=== PATIENT | female | born 1980 | race Caucasian/White ===

== ENCOUNTER 2016-07-13 | Emergency (ER) | payer MEDICAID | END 2016-07-13 14:52 | disposition left against medical advice (07) | DX: Z53.21 Procedure and treatment not carried out due to patient leaving prior to being seen by health care provider (principal) ==

== ENCOUNTER 2016-07-14 07:41 | Emergency (ER) | payer MEDICAID ==
[2016-07-14] MEDS ORDERED: SODIUM CHLORIDE 0.9% 1,000 ML IV ONE ×2 (08:06→09:36)
[2016-07-14] MEDS ORDERED: ONDANSETRON 4 MG/2 ML VIAL IVP STA ×2 (08:06→09:50)
--- NOTE | 2016-07-14 08:11 | ED Physician Documentation ---
PD HPI ABD PAIN - Stated complaint Stated Complaint: STOMACH PAIN - Chief complaint Chief Complaint: Abd Pain - History obtained from History obtained from: Patient - History of Present Illness Timing - onset: How many weeks ago (3) Timing - duration: Weeks (3) Timing - details: Waxing and waning Quality: Pain Location: Periumbilical Improved by: Eating Associated symptoms: Nausea, Vomiting, Diarrhea. No: Fever Similar symptoms before: Diagnosis (History of similar symptoms with PUD.) - Additional information Additional information: The patient is a 36-year-old female who presents with abdominal pain that has been waxing and waning for the past 3 weeks. She has been vomiting almost every morning. She also reports having watery diarrhea daily for the past 10 days. She has tried taking antacid, without relief. Eating temporarily helps with the pain. She has a history of similar symptoms in the past with "ulcers." She is not currently on any medication for ulcers. She denies drinking alcohol, and does not take other drugs. She does drink coffee, and smokes cigarettes. On further review of systems she denies fever, cough, or dysuria. This morning when vomiting she developed pain in her neck. She is status post hysterectomy. She denies any recent travel. No other family members are ill. Review of Systems Constitutional: denies: Fever Nose: denies: Congestion Throat: denies: Sore throat Cardiac: denies: Chest pain / pressure Respiratory: denies: Dyspnea, Cough GI: reports: Abdominal Pain, Nausea, Vomiting, Diarrhea : reports: Hysterectomy. denies: Dysuria Skin: denies: Rash Musculoskeletal: reports: Neck pain. 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 - Present Medications Home Medications: Ambulatory Orders Medication Instructions Recorded Confirmed Dextroamphetamine/Amphetamine 30 mg PO DAILY 12/14/15 07/14/16 [Adderall 30 mg Tablet] Lamotrigine [Lamictal] 200 mg PO DAILY #30 tablet 12/14/15 07/14/16 Ondansetron Odt [Zofran] 4 mg TL Q6H PRN #10 tablet 07/14/16 raNITIdine [Zantac] 150 mg PO BID #30 tablet 07/14/16 - Allergies Allergies/Adverse Reactions: Allergies Allergy/AdvReac Type Severity Reaction Status Date / Time No Known Drug Allergies Allergy Verified 07/14/16 07:46 - Living Situation Living Situation: reports: With family - Social History Does the pt smoke?: Yes Smoking Status: Current every day smoker Does the pt drink ETOH?: Yes Does the pt have substance abuse?: No - Immunizations Immunizations are current?: Yes PD ED PE NORMAL - Vitals Vital signs reviewed: Yes (Initially hypertensive and tachycardic.) - General General: Alert and oriented X 3, Well developed/nourished - HEENT HEENT: Atraumatic, EOMI, Pharynx benign - Neck Neck: Supple, no meningeal sign, No adenopathy - Cardiac Cardiac: RRR, No murmur - Respiratory Respiratory: No respiratory distress, Clear bilaterally - Abdomen Abdomen: Normal bowel sounds, Soft, Non tender, Non distended, No organomegaly, Other (There is no specific tenderness to palpation of the abdomen.) - Back Back: No CVA TTP - Derm Derm: No rash - Extremities Extremities: No edema, No calf tenderness / cord - Neuro Neuro: Alert and oriented X 3, No motor deficit, Normal speech Results - Vitals Vitals: Vital Signs - 24 hr 07/14/16 11:35 Temperature 36.8 C Heart Rate 88 Respiratory 17 Rate Blood Pressure 162/96 H O2 Saturation 100 Oxygen O2 Source Room air - Labs Labs: Laboratory Tests 07/14/16 07/14/16 07/14/16 08:13 08:13 09:36 WBC 5.6 RBC 4.16 L Hgb 14.2 Hct 40.2 MCV 96.8 MCH 34.2 H MCHC 35.4 RDW 12.1 Plt Count 214 MPV 8.5 Neut # 2.5 Lymph # 2.4 [place] # 0.4 Eos # 0.2 Baso # 0.1 Absolute Nucleated RBC 0.00 Nucleated RBCs 0.0 Sodium 138 Potassium 4.2 Chloride 102 Carbon Dioxide 27 Anion Gap 9.0 BUN 17 Creatinine 0.8 Estimated GFR (MDRD) 82 L Glucose 97 Calcium 9.4 Total Bilirubin 0.8 AST 103 H ALT 132 H Alkaline Phosphatase 85 Total Protein 7.3 Albumin 4.5 Globulin 2.8 Albumin/Globulin Ratio 1.6 Lipase 30 Urine Color YELLOW Urine Clarity CLEAR Urine pH 6.0 Ur Specific [place] 1.010 Urine Protein NEGATIVE Urine Glucose (UA) NEGATIVE Urine Ketones NEGATIVE Urine Occult Blood NEGATIVE Urine Nitrite NEGATIVE Urine Bilirubin NEGATIVE Urine Urobilinogen 0.2 (NORMAL) Ur Leukocyte Esterase NEGATIVE Ur Microscopic Review NOT INDICATED Urine Culture Comments NOT INDICATED PD MEDICAL DECISION MAKING - ED course Complexity details: reviewed results, re-evaluated patient, considered differential, d/w patient, d/w family ED course: The patient's presentation is most consistent with peptic ulcer disease versus gastritis. Her presentation does not suggest cardiac etiology of her abdominal pain and vomiting. Her symptoms do not suggest biliary colic, although ALT and AST are slightly elevated. I doubt pancreatitis, with a normal lipase. She is status post hysterectomy, so is not a concern. Treatment in the emergency department included administration of normal saline 1 L IV, Zofran 4 mg IV 2, acetaminophen 1 g orally, and famotidine 20 mg IV. By the time of discharge the patient's symptoms had resolved, and reexamination reveals a benign abdomen. She is being discharged with prescriptions for ranitidine and Zofran. I discussed with her and her mother the likely diagnosis , dietary factors and symptomatic treatment, the importance of outpatient follow -up, as well as potentially worrisome signs or symptoms that should prompt reevaluation in the emergency department. Departure - Departure Disposition: 01 Home, Self Care Clinical Impression: PUD (peptic ulcer disease), Dehydration Vomiting Qualifiers: Vomiting type: unspecified Vomiting Intractability: non-intractable Nausea presence: with nausea Qualified Code(s): R11.2 - Nausea with vomiting, unspecified Diarrhea Qualifiers: Diarrhea type: unspecified type Qualified Code(s): R19.7 - Diarrhea, unspecified Hypertension Qualifiers: Hypertension type: unspecified secondary hypertension Qualified Code(s): I15.9 - Secondary hypertension, unspecified; I15 - Secondary hypertension Condition: Stable Instructions: ED PUD Vs Gastritis Follow-Up: [facility] [Provider Group] Prescriptions: raNITIdine [Zantac] 150 mg PO BID #30 tablet Ondansetron Odt [Zofran] 4 mg TL Q6H PRN #10 tablet PRN Reason: Nausea / Vomiting Comments: Drink plenty of fluids. Take ranitidine twice daily as prescribed. Use Zofran as prescribed if needed for nausea. Followup with primary physician within 2 weeks. Call to schedule an appointment. Return to the emergency department if you develop increasing abdominal pain, persistent vomiting, recurrent dehydration, or otherwise worsening symptoms. Your blood pressure in the emergency department today was high, and that should be rechecked when seen by a primary physician. Discharge Date/Time: 07/14/16 12:08
[2016-07-14] MEDS ORDERED: ONDANSETRON 4 MG/2 ML VIAL ONE ×2 (08:12→09:42)
[2016-07-14 08:23] LABS: BASOPHILS # (AUTO) 0.1 10^3/uL (0.0-0.1); BASOPHILS % (AUTO) 1.3 %; EOSINOPHILS # (AUTO) 0.2 10^3/uL (0.0-0.7); EOSINOPHILS % (AUTO) 4.3 %; HCT - HEMATOCRIT 40.2 % (37.0-47.0); HGB - HEMOGLOBIN 14.2 g/dL (12.0-16.0); LYMPHOCYTES # (AUTO) 2.4 10^3/uL (1.5-3.5); LYMPHOCYTES % (AUTO) 42.1 %; MEAN CORPUSCULAR HEMOGLOBIN 34.2 pg (27.0-31.0); MEAN CORPUSCULAR HGB CONC 35.4 g/dL (32.0-36.0); MEAN CORPUSCULAR VOLUME 96.8 fL (81.0-99.0); MEAN PLATELET VOLUME 8.5 fL (7.9-10.8); MONOCYTES # (AUTO) 0.4 10^3/uL (0.0-1.0); MONOCYTES % (AUTO) 7.6 %; NEUTROPHILS # (AUTO) 2.5 10^3/uL (1.5-6.6); NEUTROPHILS % (AUTO) 44.7 %; RED BLOOD COUNT 4.16 10^6/uL (4.20-5.40); RED CELL DISTRIBUTION WIDTH 12.1 % (12.0-15.0); UNCORRECTED WHITE BLOOD COUNT 5.6 x10^3/uL; WHITE BLOOD COUNT 5.6 x10^3/uL (4.8-10.8)
[2016-07-14 08:35] LABS: ALBUMIN/GLOBULIN RATIO 1.6 (1.0-2.2); BILIRUBIN,TOTAL 0.8 mg/dL (0.2-1.0); CALCIUM 9.4 mg/dL (8.5-10.3); CREATININE 0.8 mg/dL (0.4-1.0); POTASSIUM 4.2 mmol/L (3.5-5.0); TOTAL PROTEIN 7.3 g/dL (6.7-8.2)
[2016-07-14] MEDS ORDERED: FAMOTIDINE 20 MG/50 ML 50 ML IV ONE ×2 (09:34→09:36)
[2016-07-14] MEDS ORDERED: ACETAMINOPHEN 325 MG TABLET PO STA (09:36)
[2016-07-14] MEDS ORDERED: ACETAMINOPHEN 500 MG TABLET PO ONE (09:37)
[2016-07-14 09:54] LABS: BILIRUBIN,URINE NEGATIVE (NEGATIVE)
[2016-07-14 09:55] LABS: UA CHARGE (STRIP ONLY) YES; UR CULTURE IF IND NOT INDICATED
[2016-07-14 11:36] VITALS: BP 162/96
== END 2016-07-14 12:08 | disposition home or self-care (01) ==
LOC: ED 07:41
DX: K27.9 Peptic ulcer, site unspecified, unspecified as acute or chronic, without hemorrhage or perforation (principal); E86.0 Dehydration; R11.2 Nausea with vomiting, unspecified; R19.7 Diarrhea, unspecified; I15.9 Secondary hypertension, unspecified; F17.200 Nicotine dependence, unspecified, uncomplicated
CPT/HCPCS: 36415; 80053; 81003; 83690; 85025; 96361; 96374; 96375; 99284; A9270; 81001; 87086

== ENCOUNTER 2017-01-12 11:48 | Outpatient (CLI) | payer MEDICAID ==
[2017-01-12 19:04] LABS: BASOPHILS % (AUTO) 0.4 %; EOSINOPHILS # (AUTO) 0.1 10^3/uL (0.0-0.7); EOSINOPHILS % (AUTO) 1.3 %; HGB - HEMOGLOBIN 13.6 g/dL (12.0-16.0); LYMPHOCYTES # (AUTO) 1.6 10^3/uL (1.5-3.5); LYMPHOCYTES % (AUTO) 29.4 %; MEAN CORPUSCULAR HEMOGLOBIN 33.8 pg (27.0-31.0); MEAN CORPUSCULAR HGB CONC 33.1 g/dL (32.0-36.0); MEAN CORPUSCULAR VOLUME 102.1 fL (81.0-99.0); MONOCYTES # (AUTO) 0.3 10^3/uL (0.0-1.0); MONOCYTES % (AUTO) 5.2 %; NEUTROPHILS # (AUTO) 3.6 10^3/uL (1.5-6.6); NEUTROPHILS % (AUTO) 63.7 %; RED BLOOD COUNT 4.01 10^6/uL (4.20-5.40); RED CELL DISTRIBUTION WIDTH 12.7 % (12.0-15.0); UNCORRECTED WHITE BLOOD COUNT 5.6 x10^3/uL; WHITE BLOOD COUNT 5.6 x10^3/uL (4.8-10.8)
[2017-01-12 19:19] LABS: PT - PROTHROMBIN TIME 11.2 secs (9.9-12.6)
[2017-01-12 19:29] LABS: PARTIAL THROMBOPLASTIN TIME 25.5 secs (24.9-33.3)
== END 2017-01-12 11:49 | disposition home or self-care (01) ==
LOC: LAB.N 11:48
PROVIDERS: ATTEND Nurse Practitioner Gerontology
DX: D68.9 Coagulation defect, unspecified (principal)
CPT/HCPCS: 36415; 85025; 85610; 85730

== ENCOUNTER 2017-01-23 08:00 | Emergency (ER) | payer MEDICAID ==
[2017-01-23] MEDS ORDERED: ACETAMINOPHEN 325 MG TABLET PO STA (08:30)
--- NOTE | 2017-01-23 08:32 | ED Physician Documentation ---
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 - Present Medications Home Medications: Ambulatory Orders Medication Instructions Recorded Confirmed Dextroamphetamine/Amphetamine 30 mg PO DAILY 12/14/15 01/23/17 [Adderall 30 mg Tablet] Lamotrigine [Lamictal] 200 mg PO DAILY #30 tablet 12/14/15 01/23/17 Ondansetron Odt [Zofran] 4 mg TL Q6H PRN #10 tablet 07/14/16 raNITIdine [Zantac] 150 mg PO BID #30 tablet 07/14/16 01/23/17 - Allergies Allergies/Adverse Reactions: Allergies Allergy/AdvReac Type Severity Reaction Status Date / Time No Known Drug Allergies Allergy Verified 07/14/16 07:46 - Social History Does the pt smoke?: Yes Smoking Status: Current every day smoker Does the pt drink ETOH?: Yes Does the pt have substance abuse?: No - Immunizations Immunizations are current?: Yes PD ED PE NORMAL - Vitals Vital signs reviewed: Yes - Extremities Extremities: Other (L knee, small effusion, no lateral TTP, no patellar TTP, + medial jt line TTP, slight medial laxity but similar to R knee, no ACL LCL laxity, MSV intact ) Results - Vitals Vitals: Vital Signs - 24 hr 01/23/17 01/23/17 08:08 10:07 Temperature 36.5 C 36.7 C Heart Rate 100 79 Respiratory 14 19 Rate Blood Pressure 141/118 H 131/85 H O2 Saturation 100 100 Oxygen O2 Source Room air - Rads (name of study) knee Radiology: See rad report (neg) PD MEDICAL DECISION MAKING - ED course ED course: pt stated knee immobilizer made pain worse so changed to IOANA + crutches Departure - Departure Disposition: 01 Home, Self Care Clinical Impression: Knee MCL sprain Qualifiers: Encounter type: initial encounter Laterality: left Qualified Code(s): S83.412A - Sprain of medial collateral ligament of left knee, initial encounter Condition: Good Instructions: ED Sprain Knee Collateral Ligaments Follow-Up: [facility] [Provider Group] (if not better after two weeks of wearing the brace) Keely Gutierrez ARNP [Primary Care Provider] - (for a recheck - and to follow up about your high blood pressure ) Comments: The xray did not show any fractures. It is possible for a hairline fracture to not be visible on initial xray so if the pain persists more than a few weeks, please see your PMD for a recheck and consideration of further imaging Based on your exam it seems you have sprained the medical collateral ligament Recommend you either wear a knee immobilizer or else an IOANA wrap and use crutches to reduce the stress on the injured ligament Motrin and tylenol as needed for the pain Ice and elevation as needed for the swelling Follow up with your PMD to get your blood pressure rechecked And follow up with either your PMD or orthopedics if not improving in two weeks Forms: Activity restrictions Discharge Date/Time: 01/23/17 10:13
[2017-01-23] MEDS ORDERED: ACETAMINOPHEN 325 MG TABLET PO ONE (08:51)
--- NOTE | 2017-01-23 09:20 | XRAY Preliminary Report ---
Exam: XR Knee 3 View LT IMPRESSION: Negative three-view left knee radiography. [facility] SITE ID: [id number]
--- NOTE | 2017-01-23 09:22 | XRAY Report ---
EXAM: LEFT KNEE RADIOGRAPHY EXAM DATE: 01/23/2017 08:53 AM. CLINICAL HISTORY: Fell on L knee, medial pain. COMPARISON: None. TECHNIQUE: 3 views. FINDINGS: Bones: No fractures or bone lesions. Joints: No effusion. No subluxations. Soft Tissues: No soft tissue swelling. IMPRESSION: Negative three-view left knee radiography. [facility] Referring Provider Line: [phone] SITE ID: [id number]
[2017-01-23 10:08] VITALS: BP 131/85
== END 2017-01-23 10:13 | disposition home or self-care (01) ==
LOC: ED 08:00
DX: S83.412A Sprain of medial collateral ligament of left knee, initial encounter (principal); W19.XXXA Unspecified fall, initial encounter; R03.0 Elevated blood-pressure reading, without diagnosis of hypertension; F17.200 Nicotine dependence, unspecified, uncomplicated
CPT/HCPCS: 73562; 99283; A9270

== ENCOUNTER 2017-02-27 09:19 | Emergency (ER) | payer OTHER, MEDICAID ==
[2017-02-27] MEDS ORDERED: HYDROcod/ACETAM 5/325 MG TABLET PO STA (10:20)
--- NOTE | 2017-02-27 10:22 | ED Physician Documentation ---
PD HPI UPPER EXT INJURY - Stated complaint Stated Complaint: R HAND INJ - Chief complaint Chief Complaint: Ext Problem - History obtained from History obtained from: Patient, Friend - History of Present Illness Location: Right, Hand Type of injury: Blunt / blow Where injury occurred: Work Timing - onset: Today Timing - duration: Minutes Timing - details: Abrupt onset, Still present Improved by: Rest, Immobilization Worsened by: Moving, Palpating Associated symptoms: Swelling Contributing factors: No: Anticoagulated Similar symptoms before: Has not had sx before Recently seen: Not recently seen - Additonal information Additional information: 36-year-old female was at work today when she dropped a 300 pound great on her right hand. She has pain across the thenar eminence and the pain shoots up into her forearm when she flexes or extends the thumb or moves to the wrist. She does not have pain in the wrist she does not have pain in the fingers. Review of Systems Constitutional: denies: Fever Throat: denies: Sore throat Respiratory: denies: Cough GI: denies: Vomiting Skin: denies: Rash Musculoskeletal: reports: Extremity pain, Extremity swelling. 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 - Present Medications Home Medications: Ambulatory Orders Medication Instructions Recorded Confirmed Dextroamphetamine/Amphetamine 30 mg PO DAILY 12/14/15 01/23/17 [Adderall 30 mg Tablet] Lamotrigine [Lamictal] 200 mg PO DAILY #30 tablet 12/14/15 02/27/17 HYDROcod/ACETAM 5/325 [[place] 5/325] 1 - 2 ea PO Q6H PRN #15 tablet 02/27/17 - Allergies Allergies/Adverse Reactions: Allergies Allergy/AdvReac Type Severity Reaction Status Date / Time No Known Drug Allergies Allergy Verified 02/27/17 09:34 - Social History Does the pt smoke?: Yes Smoking Status: Current every day smoker Does the pt drink ETOH?: Yes Does the pt have substance abuse?: No - Immunizations Immunizations are current?: Yes PD ED PE NORMAL - Vitals Vital signs reviewed: Yes (hypertensive ) - General General: Alert and oriented X 3, No acute distress, Well developed/nourished - HEENT HEENT: Atraumatic - Respiratory Respiratory: No respiratory distress - Derm Derm: Normal color, Warm and dry, No rash - Extremities Extremities: No deformity, Other (There is tenderness over the right thenar eminence and no obvious deformity. There is no tenderness over the distal radius and ulna flexion extension of the wrist does cause pain into the hand and into the forearm. She is able flex all the fingers she is not able to flex the thumb without significant pain.) - Neuro Neuro: No motor deficit, No sensory deficit - Psych Psych: Normal mood, Normal affect Results - Vitals Vitals: Vital Signs - 24 hr 02/27/17 02/27/17 09:26 11:15 Temperature 37 C 37.0 C Heart Rate 100 79 Respiratory 20 18 Rate Blood Pressure 162/90 H 155/89 H O2 Saturation 100 100 Oxygen O2 Source Room air - Rads (name of study) Right hand Radiology: Prelim report reviewed (Impression: No acute fracture or dislocation identified.), EMP read indepedently, See rad report PD MEDICAL DECISION MAKING - ED course Complexity details: reviewed results, re-evaluated patient, considered differential, d/w patient ED course: 36-year-old female with a crush injury to the right hand does not have any evidence of fracture on x-ray examination. She does have tenderness to the thenar eminence and she is placed into a volar splint for comfort. Departure - Departure Disposition: 01 Home, Self Care Clinical Impression: Contusion of hand, right Qualifiers: Encounter type: initial encounter Qualified Code(s): S60.221A - Contusion of right hand, initial encounter Condition: Stable Instructions: ED Contusion Hand Follow-Up: Keely Gutierrez ARNP [Primary Care Provider] - Prescriptions: HYDROcod/ACETAM 5/325 [[place] 5/325] 1 - 2 ea PO Q6H PRN #15 tablet PRN Reason: Pain Comments: Today in the Emergency Department your blood pressure was elevated. This can happen from the stress of the visit itself, from a current illness or circumstance or from uncontrolled hypertension. If you take blood pressure medications take your usual mediations, have your blood pressure re-checked in an appropriate setting and follow up any elevation with your primary care doctor. Forms: Activity restrictions Discharge Date/Time: 02/27/17 11:14
[2017-02-27] MEDS ORDERED: HYDROcod/ACETAM 5/325 MG TABLET ONE (10:27)
--- NOTE | 2017-02-27 10:52 | XRAY Preliminary Report ---
Exam: XR Hand 3 View RT IMPRESSION: No acute fracture or dislocation identified. [facility] SITE ID: [id number]
--- NOTE | 2017-02-27 10:54 | XRAY Report ---
EXAM: RIGHT HAND RADIOGRAPHY EXAM DATE: 02/27/2017 10:19 AM. CLINICAL HISTORY: Metal grate versus right hand, pain COMPARISON: None. TECHNIQUE: 3 views. FINDINGS: Bones: Bony mineralization appears appropriate. No acute fracture identified. Joints: Alignment and joint spaces appear maintained. No dislocation. Soft Tissues: No radiopaque foreign body. Mild apparent soft tissue swelling. IMPRESSION: No acute fracture or dislocation identified. [facility] Referring Provider Line: [phone] SITE ID: [id number]
[2017-02-27 11:16] VITALS: BP 155/89
== END 2017-02-27 11:14 | disposition home or self-care (01) ==
LOC: ED 09:19
DX: S60.221A Contusion of right hand, initial encounter (principal); W22.8XXA Striking against or struck by other objects, initial encounter; Y99.0 Civilian activity done for income or pay; R03.0 Elevated blood-pressure reading, without diagnosis of hypertension; F17.200 Nicotine dependence, unspecified, uncomplicated
CPT/HCPCS: 1040M; 73130; 99283; A9270

== ENCOUNTER 2018-12-23 14:10 | Outpatient (CLI) | payer OTHER, BC | END 2018-12-23 14:11 | disposition home or self-care (01) | LOC: EMS 14:10 | PROVIDERS: ATTEND Surgery | DX: S09.90XA Unspecified injury of head, initial encounter (principal); R51 Headache; W11.XXXA Fall on and from ladder, initial encounter; Y93.H9 Activity, other involving exterior property and land maintenance, building and construction; Y92.009 Unspecified place in unspecified non-institutional (private) residence as the place of occurrence of the external cause | CPT/HCPCS: A0425; A0427 ==

== ENCOUNTER 2018-12-23 14:33 | Emergency (ER) | payer OTHER, BC ==
[2018-12-23] MEDS ORDERED: HYDROcod/ACETAM 5/325 MG TABLET PO STA (14:52)
--- NOTE | 2018-12-23 14:54 | ED Physician Documentation ---
PD HPI HEAD INJURY - Stated complaint Stated Complaint: FALL FROM LADDER - Chief complaint Chief Complaint: Trauma Hd/Nk - History obtained from History obtained from: Patient - History of Present Illness Mechanism of head injury: Fell (Fell about 8 feet off of the latter. She does not remember hitting the ground and she does have a headache and some upper neck pain. No other injuries. 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 - Present Medications Home Medications: Ambulatory Orders Medication Instructions Recorded Confirmed lamoTRIgine [Lamictal] 200 mg PO DAILY #30 tablet 12/14/15 12/23/18 Cyclobenzaprine [Flexeril] 10 mg PO TID PRN #20 tablet 12/23/18 Hydrocodone/Acetaminophen 1 - 2 each PO Q6H PRN #14 tablet 12/23/18 [Hydrocodon-Acetaminophen 5-325] Ibuprofen [Motrin] 800 mg PO Q8H PRN #30 tablet 12/23/18 - Allergies Allergies/Adverse Reactions: Allergies Allergy/AdvReac Type Severity Reaction Status Date / Time No Known Drug Allergies Allergy Verified 12/23/18 14:46 - Social History Does the pt smoke?: Yes Smoking Status: Current every day smoker Does the pt drink ETOH?: Yes Does the pt have substance abuse?: No - Immunizations Immunizations are current?: Yes PD ED PE NORMAL - Vitals Vital signs reviewed: Yes - General General: Alert and oriented X 3, No acute distress - HEENT HEENT: PERRL, EOMI - Neck Neck: Other (Mild upper C-spine tenderness, collar maintained pending imaging but logrolled off the board during exam) - Cardiac Cardiac: RRR, No murmur - Respiratory Respiratory: No respiratory distress, Clear bilaterally - Abdomen Abdomen: Soft, Non tender - Back Back: No CVA TTP, No spinal TTP (T/L) - Extremities Extremities: No deformity, No tenderness to palpate, Normal ROM s pain, No edema - Neuro Neuro: Alert and oriented X 3, 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 Imaging is shown. Feeling much better after removal of the c-collar without persistent spinal tenderness. Departure - Departure Disposition: 01 Home, Self Care Clinical Impression: Neck pain Fall from ladder Qualifiers: Encounter type: initial encounter Qualified Code(s): W11.XXXA - Fall on and from ladder, initial encounter Concussion Qualifiers: Encounter type: initial encounter Loss of consciousness presence/duration: without LOC Qualified Code(s): S06.0X0A - Concussion without loss of consciousness, initial encounter Condition: Good Record reviewed to determine appropriate education?: Yes Instructions: ED Concussion Follow-Up: Keely Gutierrez ARNP [Primary Care Provider] - Within 1 week (if pers istent symptoms) Prescriptions: Cyclobenzaprine [Flexeril] 10 mg PO TID PRN #20 tablet PRN Reason: Spasms Hydrocodone/Acetaminophen [Hydrocodon-Acetaminophen 5-325] 1 - 2 each PO Q6H PRN #14 tablet PRN Reason: pain Ibuprofen [Motrin] 800 mg PO Q8H PRN #30 tablet PRN Reason: PAIN &/OR FEVER Comments: Your blood pressure was elevated today on check into the emergency department. This does not mean that you have hypertension, it is a common phenomenon to come to the emergency department and have elevated blood pressure. I recommend that you see your primary care physician within the week to have it rechecked when you are feeling better. Do not drink or drive while taking narcotic pain medication. Note that many narcotic pain relievers also contain Tylenol/acetaminophen. Please ensure that your total dose of acetaminophen from all sources does not exceed 3 g (3000 mg) per day. You may get constipated while on this medication. Take a stool softener such as Colace twice a day while you are on it. Also add an [id number] laxative such as senna or MiraLAX on any day that you do not have a bowel movement. If you received a narcotic pain medication or sedative while in the emergency department, do not drive for the next 24 hours. Forms: Activity restrictions
--- NOTE | 2018-12-23 15:57 | CT Report ---
Reason: head inj Procedure Date: 12/23/2018 Accession Number: [id number] / [id number] Procedure: CT - HEAD WO CPT Code: FULL RESULT: EXAM: CT HEAD EXAM DATE: 12/23/2018 03:15 PM. CLINICAL HISTORY: Head injury. COMPARISON: None. TECHNIQUE: Multiaxial CT images were obtained from the foramen magnum to the vertex. Reformats: Sagittal and coronal. IV contrast: None. In accordance with CT protocol optimization, one or more of the following dose reduction techniques were utilized for this exam: automated exposure control, adjustment of mA and/or KV based on patient size, or use of iterative reconstructive technique. FINDINGS: Parenchyma: No intraparenchymal hemorrhage. No evidence of mass, midline shift, or CT findings of infarction. Saez-white differentiation is distinct. Extraaxial Spaces: Normal for age. No subdural or epidural collections identified. Ventricles: Normal in size and position. Sinuses and Orbits: Imaged paranasal sinuses, orbits, and mastoids show no significant abnormality. Bones: No evidence of fracture or calvarial defect. Other: None. IMPRESSION: No acute intracranial abnormality. [facility]
--- NOTE | 2018-12-23 16:11 | CT Report ---
Reason: head inj Procedure Date: 12/23/2018 Accession Number: [id number] / [id number] Procedure: CT - CERVICAL SPINE WO CPT Code: FULL RESULT: EXAM: CT CERVICAL SPINE WITHOUT CONTRAST DATE: 12/23/2018 03:15 PM. HISTORY: 38-year-old presenting after head injury with neck pain. Evaluate surgical pathology. COMPARISONS: None. TECHNIQUE: Thin-section axial images were acquired of the cervical spine without contrast. Post-processing: Coronal and sagittal reformats. Other: None. In accordance with CT protocol optimization, one or more of the following dose reduction techniques were utilized for this exam: automated exposure control, adjustment of mA and/or KV based on patient size, or use of iterative reconstructive technique. FINDINGS: Alignment: Reversal of normal cervical lordosis. There appears to be mild leftward curvature of the cervical spine. Bones: No fracture or bone lesion. Interspace Levels/Facets: C1-C2: Unremarkable. C2-C3: Unremarkable. C3-C4: Unremarkable. C4-C5: Unremarkable. C5-C6: Small right paracentral disk protrusion. Mild spinal canal stenosis and effacement of right lateral recess. No definite neural foraminal narrowing. C6-C7: Small left subarticular disk protrusion. Mild spinal canal stenosis and effacement of left lateral recess. No definite neural foraminal narrowing. C7-T1: Unremarkable. Musculature: Normal. No fatty atrophy. Other: The paravertebral and prevertebral soft tissues are unremarkable. There is a metallic density seen within the posterior dermal soft tissues of the neck at the level of C4 (series 5, image 58) likely post cosmetic. The lung apices are clear. IMPRESSION: 1. No definite acute fracture or traumatic subluxation seen. 2. Slight reversal of normal cervical lordosis. 3. At C5-C6: There appears to be a small right paracentral disk protrusion. Mild spinal canal stenosis and effacement of right lateral recess. No definite neural foraminal narrowing. 4. At C6-C7: There appears to be a small left subarticular disk protrusion. Mild spinal canal stenosis and effacement of left lateral recess. No definite neural foraminal narrowing. RADIA
[2018-12-23] MEDS ORDERED: KETOROLAC 30 MG/ML VIAL IVP STA (16:20)
[2018-12-23 16:32] VITALS: BP 153/106
== END 2018-12-23 16:33 | disposition home or self-care (01) ==
LOC: EDUNIT# → ED 14:33
DX: S06.0X0A Concussion without loss of consciousness, initial encounter (principal); W11.XXXA Fall on and from ladder, initial encounter; M50.222 Other cervical disc displacement at C5-C6 level; M48.02 Spinal stenosis, cervical region; R03.0 Elevated blood-pressure reading, without diagnosis of hypertension; F17.200 Nicotine dependence, unspecified, uncomplicated
CPT/HCPCS: 70450; 72125; 96374; 99283; 99284; A9270

== ENCOUNTER 2019-06-23 05:00 | Emergency (ER) | payer BC ==
--- NOTE | 2019-06-23 05:10 | ED Physician Documentation ---
PD HPI LOWER EXT INJURY - Stated complaint Stated Complaint: LT KNEE INJ - Chief complaint Chief Complaint: Ext Problem - History obtained from History obtained from: Patient - History of Present Illness PD HPI LOW EXT INJURY LOCATION: Left, Knee Type of injury: Fall (she says she slipped and fell directly forward onto left knee, no twisting with fall. Pain anteriorly on the knee. Hurts with flexion/extension and walking.) Where injury occurred: Home Timing - onset: Last night (about 5 pm (so about 12 hours ago)) Timing - duration: Hours (12) Timing - details: Abrupt onset, Still present Improved by: No: Rest, Meds (took Ibuprofen just prior to coming here) Worsened by: Moving, Palpating Associated symptoms: Swelling (feels some tightness in front part of knee; no obvious effusion.), Other (She denies any clicking popping or giving out of the knee.). No: Weakness, Numbness Contributing factors: No: Prior ortho surgery Similar symptoms before: Diagnosis (She states she fell directly onto her knee last summer so and had pain with range of motion and weightbearing that lasted for a few months before it was fully resolved. She did keep up with regular activity but was hurting with flexion extension and squats with slow resolution. 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 - Present Medications Home Medications: Ambulatory Orders Medication Instructions Recorded Confirmed lamoTRIgine [Lamictal] 200 mg PO DAILY #30 tablet 12/14/15 12/23/18 Cyclobenzaprine [Flexeril] 10 mg PO TID PRN #20 tablet 12/23/18 Hydrocodone/Acetaminophen 1 - 2 each PO Q6H PRN #14 tablet 12/23/18 [Hydrocodon-Acetaminophen 5-325] Ibuprofen [Motrin] 800 mg PO Q8H PRN #30 tablet 12/23/18 Hydrocodone/Acetaminophen [[place] 1 each PO Q6H PRN #20 tablet 01/20/20 5-325 Tablet] Tizanidine HCl 4 mg PO TID PRN #20 capsule 06/23/19 - Allergies Allergies/Adverse Reactions: Allergies Allergy/AdvReac Type Severity Reaction Status Date / Time buspirone [From BuSpar] Allergy Rash Verified 12/24/18 08:24 control Allergy swelling Uncoded 12/24/18 08:25 - Social History Does the pt smoke?: Yes Smoking Status: Current every day smoker Does the pt drink ETOH?: Yes Does the pt have substance abuse?: No - Immunizations Immunizations are current?: Yes PD ED PE NORMAL - Vitals Vital signs reviewed: Yes - General General: Alert and oriented X 3, Well developed/nourished, Other (She does appear considerably uncomfortable and is tearful due to the pain in her knee.) - Derm Derm: Normal color, Warm and dry - Extremities Extremities: No edema, No calf tenderness / cord, Other (She has significant tenderness to palpation on the anterior aspect of the left knee in the area of the patella and infrapatellar area. There is no effusion noted in the knee. The lateral aspects of the collateral ligaments are not tender. The posterior aspect of the knee and the hamstrings are not tender. There is limited range of motion of the knee due to the discomfort anteriorly. She has guardedness with palpation. Limited ligament testing because of the tenderness anteriorly. There is no gross laxity of the cruciates.) - Neuro Neuro: Alert and oriented X 3, No motor deficit, No sensory deficit Results - Vitals Vitals: Vital Signs - 24 hr 06/23/19 06/23/19 05:02 06:13 Heart Rate 103 H 78 Respiratory 16 14 Rate Blood Pressure 146/94 H 139/85 H O2 Saturation 97 98 Oxygen O2 Source Room air - Rads (name of study) left knee Radiology: Prelim report reviewed (No fracture no effusion. There is some edema in the anterior part of the patella consistent with contusion.), See rad report PD MEDICAL DECISION MAKING - ED course Complexity details: considered differential (Seems a direct impact with a forward fall with some contusion of the patella and proximal tibia. There is no fractures on x-ray. There is no joint effusion. Consider possibly some meniscal injury. Is also hard to assess the cruciates because of her discomfort. We can use a knee brace anti-inflammatories and pain medicine. She has crutches at home she says.), d/w patient Departure - Departure Disposition: 01 Home, Self Care Clinical Impression: Accidental fall Qualifiers: Encounter type: initial encounter Qualified Code(s): W19.XXXA - Unspecified fall, initial encounter Knee contusion Qualifiers: Encounter type: initial encounter Laterality: left Qualified Code(s): S80.02XA - Contusion of left knee, initial encounter Condition: Stable Record reviewed to determine appropriate education?: Yes Instructions: ED Contusion Lower Ext Follow-Up: Keely Gutierrez ARNP [Primary Care Provider] - Prescriptions: Hydrocodone/Acetaminophen [[place] 5-325 Tablet] 1 each PO Q6H PRN #20 tablet PRN Reason: Pain Tizanidine HCl 4 mg PO TID PRN #20 capsule PRN Reason: Spasms Comments: Your x-ray appears normal without any signs of fracture. It sounds more like bruising of the tendon and kneecap, and less likely a ligament injury within the knee. There could also be some bruising of the cartilage in the knee from this type of injury. That would get treated with the knee brace and limited range of motion, anti- inflammatories and pain medicine, similar to treating bruising or sprain. Recheck if not improved well over the next week to week and a half. Anti-inflammatory such as ibuprofen 600 mg 3 times a day. To that add Tylenol or hydrocodone as needed for pain. You can use tizanidine muscle relaxant if it feels stiff around the knee muscles and thigh muscles. Discharge Date/Time: 06/23/19 06:15
[2019-06-23] MEDS ORDERED: oxyCODONE 5 MG TABLET PO STA (05:19)
[2019-06-23] MEDS ORDERED: CYCLOBENZAPRINE 10 MG TABLET PO STA (05:20)
--- NOTE | 2019-06-23 05:53 | XRAY Report ---
Reason: fell onto front left knee Procedure Date: 06/23/2019 Accession Number: [id number] / [id number] Procedure: XR - Knee 3 View LT CPT Code: Final Report FULL RESULT: EXAM: LEFT KNEE RADIOGRAPHY EXAM DATE: 06/23/2019 05:46 AM. CLINICAL HISTORY: Fell onto front left knee. COMPARISON: KNEE 3 VIEW LT 01/23/2017 8:33 AM. TECHNIQUE: 4 views. FINDINGS: Bones: Normal. No fractures or bone lesions. Joints: Normal. No significant effusion. No subluxations. Soft Tissues: Subtle density in infrapatellar fat. No significant soft tissue swelling. IMPRESSION: 1. No fracture or dislocation. 2. Mild density in infrapatellar fat, possibly edema. RADIA
[2019-06-23 06:14] VITALS: BP 139/85
== END 2019-06-23 06:15 | disposition home or self-care (01) ==
LOC: ED 05:00
DX: S80.02XA Contusion of left knee, initial encounter (principal); W01.0XXA Fall on same level from slipping, tripping and stumbling without subsequent striking against object, initial encounter; Y93.E5 Activity, floor mopping and cleaning; Y92.009 Unspecified place in unspecified non-institutional (private) residence as the place of occurrence of the external cause; F17.200 Nicotine dependence, unspecified, uncomplicated
CPT/HCPCS: 73562; 99283; A9270

== ENCOUNTER 2019-08-23 09:43 | Emergency (ER) | payer BC ==
[2019-08-23 09:53] VITALS: BP 178/92
--- NOTE | 2019-08-23 10:09 | ED Physician Documentation ---
History of Present Illness - Stated complaint Stated Complaint: BODY PX - Chief complaint Chief Complaint: Trauma Ch/Bk - History obtained from History obtained from: Patient - History of Present Illness Timing: How many days ago (2) - Additonal information Additional information: This is a 39-year-old woman who presents with complaints that 2 days ago she was walking through her garage when she fell and landed on her back on a hammer. She did not think that much of it but since then she has been unable to bend over And has been physically unable to even pick anything up she is in such "horrible" pain pain is radiating down into her leg randomly and in various spots feels like electricity shooting into the leg. The muscles are also "tensing up and cramping. She tried taking muscle relaxers twice and took ibuprofen 800 mg yesterday and today but is not helping the pain at all. She cannot get comfortable to sleep. She says she did not hit her head. Has no back pain. She did not pass out. She has not noticed any bruising on her buttock. No urinary incontinence and she denies . 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 Review of Systems Constitutional: denies: Fever GI: denies: Vomiting : denies: Dysuria, Incontinent Skin: reports: Other (No bruising at the site of pain). denies: Rash Musculoskeletal: reports: Other (Pain in the Left "buttock"). denies: Back pain Neurologic: reports: Other ("Electric" type pains in the left lower extremity). 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 - Present Medications Home Medications: Ambulatory Orders Medication Instructions Recorded Confirmed lamoTRIgine [Lamictal] 200 mg PO DAILY #30 tablet 12/14/15 08/23/19 Ibuprofen [Motrin] 800 mg PO Q8H PRN #30 tablet 12/23/18 08/23/19 Tizanidine HCl 4 mg PO TID PRN #20 capsule 06/23/19 Hydrocodone/Acetaminophen 1 - 2 each PO Q6H PRN #10 tablet 08/23/19 [Hydrocodon-Acetaminophen 5-325] - Allergies Allergies/Adverse Reactions: Allergies Allergy/AdvReac Type Severity Reaction Status Date / Time buspirone [From BuSpar] Allergy Rash Verified 08/23/19 09:48 control Allergy swelling Uncoded 12/24/18 08:25 - Social History Does the pt smoke?: Yes Smoking Status: Current every day smoker Does the pt drink ETOH?: Yes Does the pt have substance abuse?: No - Immunizations Immunizations are current?: Yes - POLST Patient has POLST: No PD ED PE NORMAL - Vitals Vital signs reviewed: Yes - General General: Alert and oriented X 3, Other (Patient is crying.) - Respiratory Respiratory: No respiratory distress - Back Back: No spinal TTP, Other (She has tenderness over the left SI joint. No pain over the inferior pubic ramus.) - Derm Derm: Normal color, Warm and dry, No rash, Other (No obvious bruising) - Extremities Extremities: No deformity, No edema - Neuro Neuro: Alert and oriented X 3, No motor deficit, No sensory deficit, Normal speech, Other (Reflexes are 2+ and symmetrical at the quadriceps bilaterally.) Results - Vitals Vitals: Vital Signs - 24 hr 08/23/19 09:48 Temperature 37.1 C Heart Rate 93 Respiratory 18 Rate Blood Pressure 178/92 H O2 Saturation 98 Oxygen O2 Source Room air - Rads (name of study) pelvic xray Radiology: EMP read indepedently (neg fracture), EMP read contemporaneously, See rad report PD MEDICAL DECISION MAKING - ED course Complexity details: reviewed results, re-evaluated patient, d/w patient ED course: Patient was given IM injection of Dilaudid and Phenergan. On reevaluation she stated that "I would like to be home sleeping". Did not really specify how significant her pain was at this point. Results of the imaging was discussed and she will be discharged with instructions to do ibuprofen 800 mg every 8 hours with food for the next 72 hours. Ice the SI joint and I offered gentle stretching exercises but she said she had found some online already. In addition I have Given her prescription for just a few hydrocodone tablets that she can use at night to help her sleep if she cannot get comfortable. She should not drive or operate machinery if taking that medication. If she has recurrent or persistent pain she should follow-up with her primary care provider for further pain management. Departure - Departure Disposition: 01 Home, Self Care Clinical Impression: Disorder of SI (sacroiliac) joint Condition: Good Instructions: ED Back Care Tips Follow-Up: Keely Gutierrez ARNP [Primary Care Provider] - Prescriptions: Hydrocodone/Acetaminophen [Hydrocodon-Acetaminophen 5-325] 1 - 2 each PO Q6H PRN #10 tablet PRN Reason: pain Comments: Take 800 mg of ibuprofen every 8 hours with food for the next 72 hours. Ice the lower back and do gentle stretching exercises. Have given you a prescription for just a few doses of hydrocodone that if you are having pain and cannot sleep this may help. Do not drive or operate machinery or take additional Tylenol with that. If you continue to experience pain follow-up with your primary care provider for further pain management and consideration for physical therapy. Discharge Date/Time: 08/23/19 12:40
[2019-08-23] MEDS ORDERED: PROMETHAZINE 25 MG/1 ML VIAL IM STA (10:29)
[2019-08-23] MEDS ORDERED: HYDROmorphone 1 MG/ML CARPUJECT IM STA (10:29)
--- NOTE | 2019-08-23 11:21 | XRAY Report ---
Reason: pain SI joint Procedure Date: 08/23/2019 Accession Number: [id number] / [id number] Procedure: XR - Pelvis 1 View CPT Code: Final Report FULL RESULT: EXAM: PELVIS RADIOGRAPHY EXAM DATE: 08/23/2019 10:45 AM. CLINICAL HISTORY: Pain SI joint. COMPARISON: None. TECHNIQUE: 1 view. FINDINGS: Bones: Normal. No fracture or bone lesion. Joints: The visualized hip, pubis symphysis, and sacroiliac joints are preserved. No subluxation. Soft Tissues: Normal. No soft tissue swelling. IMPRESSION: Normal pelvis radiography. RAD[facility]
== END 2019-08-23 12:40 | disposition home or self-care (01) ==
LOC: ED 09:43
DX: M53.3 Sacrococcygeal disorders, not elsewhere classified (principal); F17.210 Nicotine dependence, cigarettes, uncomplicated
CPT/HCPCS: 72170; 96372; 99283; 99284; J1170

== ENCOUNTER 2019-10-10 10:10 | Emergency (ER) | payer OTHER ==
[2019-10-10] MEDS ORDERED: BUPIVACAINE 0.5% PF 30 ML VIAL SUBQ ONE (11:03)
[2019-10-10] MEDS ORDERED: HYDROcod/ACETAM 5/325 MG TABLET PO STA (11:04)
--- NOTE | 2019-10-10 11:31 | XRAY Report ---
Reason: injury Procedure Date: 10/10/2019 Accession Number: [id number] / [id number] Procedure: XR - Finger(s) LT CPT Code: Final Report FULL RESULT: EXAM: LEFT SECOND AND THIRD DIGIT RADIOGRAPHY EXAM DATE: 10/10/2019 11:16 AM. CLINICAL HISTORY: Band saw injury. COMPARISON: None. TECHNIQUE: 3 views. FINDINGS: Bones: Normal. No fracture or bone lesion. Joints: Normal. No subluxations. Soft Tissues: The soft tissues are obscured by overlying dressing. IMPRESSION: No visible fracture. Soft tissue injury of the second and third digits. RADIA
[2019-10-10] MEDS ORDERED: BUPIVACAINE 0.5% PF 10 ML VIAL SUBQ ONE (12:00)
[2019-10-10] MEDS ORDERED: HYDROmorphone 1 MG/ML CARPUJECT IM STA (14:27)
--- NOTE | 2019-10-10 14:35 | ED Physician Documentation ---
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 Patient states that her fingers got too close and got "sucked in. The conveyor belt operator scraped the nails off of both of her fingers. She is not aware of any other injury at this time. No other complaints. Patient is up-to-date on tetanus. Review of Systems Ten Systems: 10 systems reviewed and negative Constitutional: reports: Reviewed and negative Eyes: reports: Reviewed and negative Ears: reports: Reviewed and negative Nose: reports: Reviewed and negative Throat: reports: Reviewed and negative Cardiac: reports: Reviewed and negative Respiratory: reports: Reviewed and negative GI: reports: Reviewed and negative : reports: Reviewed and negative Skin: reports: Abrasion (s), Laceration (s) Musculoskeletal: reports: Reviewed and negative Neurologic: reports: Reviewed and negative Psychiatric: reports: Reviewed and negative Endocrine: reports: Reviewed and negative Immunocompromised: reports: Reviewed and negative PD PAST MEDICAL HISTORY - Past Medical History Past Medical History: Yes Cardiovascular: None Respiratory: None Neuro: None Endocrine/Autoimmune: None GI: Ulcers INDUSTRIAL HYGIENIST: None : None HEENT: None Psych: Bipolar disorder, ADD/ADHD Musculoskeletal: None Derm: None - Past Surgical History Past Surgical History: Yes /INDUSTRIAL HYGIENIST: Hysterectomy - Present Medications Home Medications: Ambulatory Orders Medication Instructions Recorded Confirmed lamoTRIgine [Lamictal] 200 mg PO DAILY #30 tablet 12/14/15 08/23/19 Ibuprofen [Motrin] 800 mg PO Q8H PRN #30 tablet 12/23/18 08/23/19 Tizanidine HCl 4 mg PO TID PRN #20 capsule 06/23/19 Hydrocodone/Acetaminophen 1 - 2 each PO Q6H PRN #10 tablet 08/23/19 [Hydrocodon-Acetaminophen 5-325] Hydrocodone/Acetaminophen 1 - 2 each PO Q6H PRN #14 tablet 10/10/19 [Hydrocodon-Acetaminophen 5-325] - Allergies Allergies/Adverse Reactions: Allergies Allergy/AdvReac Type Severity Reaction Status Date / Time buspirone [From BuSpar] Allergy Rash Verified 10/10/19 10:24 control Allergy swelling Uncoded 12/24/18 08:25 - Social History Does the pt smoke?: Yes Smoking Status: Current every day smoker Does the pt drink ETOH?: Yes Does the pt have substance abuse?: No - Immunizations Immunizations are current?: Yes - POLST Patient has POLST: No PD ED PE NORMAL - Vitals Vital signs reviewed: Yes - General General: Alert and oriented X 3, No acute distress - HEENT HEENT: Atraumatic, PERRL, EOMI, Moist mucous membranes - Neck Neck: Supple, no meningeal sign - Cardiac Cardiac: Strong equal pulses - Respiratory Respiratory: No respiratory distress - Derm Derm: Warm and dry, Other (PT has shearing tissue and nail avulsion of her left index and middle fingers dorsally, involving germinal matrix of both fingers. Pt also has a deeper soft tissue "gouge" wound through the germinal matrix of the index finger. Bone is not visualized in the wound. Nailbeds on both fingers are macerated , without distinct laceration.) - Extremities Extremities: Other (No bony deformity of the middle and index fingers on the left. Pt is not able to extend at her index DIP joint, and fingertip is held in lax flexion, though pt can actively flex at the joint with only limitation being pain.) - Neuro Neuro: Alert and oriented X 3 - Psych Psych: Normal mood, Normal affect Results - Vitals Vitals: Oxygen O2 Source Room air - Rads (name of study) L fingers Radiology: Final report received, EMP read indepedently, See rad report (No fractures noted) Procedures - Regional nerve block Nerve block site: Digital - note digit(s) (L 2nd/3rd) Nerve block anesthesia: Marcaine 0.5% Nerve block aftercare: Excellent anesthesia, Patient tolerated well PD MEDICAL DECISION MAKING - ED course Complexity details: reviewed results, re-evaluated patient, considered differential, d/w patient ED course: After digital block and x-ray, pt's wounds were irrigated extensively and explored. The pt had an obvious, complete extensor tendon injury, likely with shearing avulsion, at the index finger distal phalanx, but tendon end was not visible in the wound. She also had significant germinal matrix injury, especially involving the index finger, as well as macerated nailbeds. In consideration of all these things, I consulted hand specialist Dr. Leon at [facility]/. She recommended the pt come to [facility] ED that evening for evaluation, stating that ultimately, the pt would likely need stenting of the nail folds and ultimately, fusion of the joint. No abx for now. She stated that pt could come by private vehicle, but should be kept NPO after this. I discussed all of this with the pt, who was agreeable, and stated her boss could drive her to [place]. Her wounds were dressed and tetanus was updated. Departure - Departure Disposition: 01 Home, Self Care Clinical Impression: Soft tissue avulsion, Nailbed injury, Avulsion of tendon of finger Fingernail avulsion Qualifiers: Encounter type: initial encounter Qualified Code(s): S61.309A - Unspecified open wound of unspecified finger with damage to nail, initial encounter Condition: Stable Instructions: ED Avulsion Nail Complete, ED Avulsion Dermal Prescriptions: Hydrocodone/Acetaminophen [Hydrocodon-Acetaminophen 5-325] 1 - 2 each PO Q6H PRN #14 tablet PRN Reason: pain Comments: Your case has been discussed with the hand specialist at [facility] in [place]. He would like to see you in the emergency department today to further treat and evaluate your injuries. It is very important to be seen by the hand specialist to determine whether there is any possibility of restoring your fingers ability to grow fingernails, and also, to determine what should be done with your index finger where the tendon has been sheared off. They would like you to come as soon as possible, and while you may come by private vehicle, and they have requested that you not have anything to eat or drink before arrival there. Discharge Date/Time: 10/10/19 15:20
[2019-10-10] MEDS ORDERED: TETANUS/DIPHTHERIA/PERTUSSIS 0.5 ML SYRINGE IM ONE (15:06)
[2019-10-10 15:20] VITALS: BP 161/93
== END 2019-10-10 15:20 | disposition home or self-care (01) ==
LOC: ED 10:10
DX: S61.301A Unspecified open wound of left index finger with damage to nail, initial encounter (principal); S61.303A Unspecified open wound of left middle finger with damage to nail, initial encounter; S66.391A Other injury of extensor muscle, fascia and tendon of left index finger at wrist and hand level, initial encounter; S66.393A Other injury of extensor muscle, fascia and tendon of left middle finger at wrist and hand level, initial encounter; W31.2XXA Contact with powered woodworking and forming machines, initial encounter; Y92.89 Other specified places as the place of occurrence of the external cause; Y99.0 Civilian activity done for income or pay; F17.200 Nicotine dependence, unspecified, uncomplicated
CPT/HCPCS: 73140; 90471; 90715; 96374; 99283; A9270; J1170

== ENCOUNTER 2020-07-12 08:45 | Outpatient (CLI) | payer OTHER | END 2020-07-12 23:59 | disposition home or self-care (01) | LOC: LAB.R 08:45 | PROVIDERS: ATTEND Family Medicine | DX: N10 Acute pyelonephritis (principal) | CPT/HCPCS: 87086 ==

== ENCOUNTER 2021-01-17 10:12 | Emergency (ER) | payer OTHER ==
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
[2021-01-17 14:15] VITALS: BP 149/92
[2021-01-17] MEDS ORDERED: ACETAMINOPHEN 325 MG TABLET PO STA (14:22)
== END 2021-01-17 14:26 | disposition home or self-care (01) ==
LOC: ED 10:12
DX: S06.0X1A Concussion with loss of consciousness of 30 minutes or less, initial encounter (principal); Y04.2XXA Assault by strike against or bumped into by another person, initial encounter; Y92.511 Restaurant or cafe as the place of occurrence of the external cause; F17.290 Nicotine dependence, other tobacco product, uncomplicated
CPT/HCPCS: 99284

== ENCOUNTER 2021-01-20 16:24 | Outpatient (CLI) | payer OTHER ==
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
== END 2021-01-20 16:25 | disposition home or self-care (01) ==
LOC: DI 16:24
PROVIDERS: ATTEND Physician Assistant Medical
DX: S06.0X1S Concussion with loss of consciousness of 30 minutes or less, sequela (principal)

== ENCOUNTER 2021-03-28 08:00 | Outpatient (CLI) | payer OTHER | END 2021-03-28 08:01 | disposition home or self-care (01) | LOC: LAB 08:00 | PROVIDERS: ATTEND Physician Assistant Medical | DX: R22.32 Localized swelling, mass and lump, left upper limb (principal) | CPT/HCPCS: 87070; 87205 ==

== ENCOUNTER 2022-09-19 11:58 | Outpatient (CLI) | payer SELFPAY | END 2022-09-19 11:59 | disposition home or self-care (01) | LOC: LAB.N 11:58 | PROVIDERS: ATTEND Physician Assistant Medical | DX: F31.30 Bipolar disorder, current episode depressed, mild or moderate severity, unspecified (principal) | CPT/HCPCS: 80175 ==